=== PATIENT | male | born 1955 | race Caucasian/White ===

== ENCOUNTER → 2016-09-24 | Outpatient (CLI) | payer BC ==
--- NOTE | 2016-09-24 14:41 | DI ---
Indication: ITS.REASON: I25.10; R01.1; I35.0 Frequency of micturition PROCEDURE: US CAROTID DOPP COMPLETE: TECHNIQUE: Grayscale, color and duplex Doppler imaging was performed of the carotid systems bilaterally. Velocities in cm/sec - validated velocity measurements with angiographic measurements, velocity criteria are extrapolated from diameter data as defined by the Society of Radiologists in Ultrasound Consensus Conference Radiology 2003; 229;340-346. RIGHT: PSV ICA 183 EDV ICA 55 PSV CCA 93 EDV CCA 19 SVR 2.0 PSV ECA 147 ICA Diameter reduction 60%-80% (>2.0 PSV>150)% LEFT: PSV ICA 117 EDV ICA 24 PSV CCA 102 EDV CCA 22 SVR 1.1 PSV ECA 123 ICA Diameter reduction 20%-40% (1.2-1.4 [id number])% The right vertebral artery is patent with cephalic flow. The left vertebral artery is patent with cephalic flow. Heavy calcified plaque in the right common carotid and carotid bulb. Elevated velocities throughout the right ICA. Calcified and noncalcified plaque in the left carotid bulb with no focal velocity elevation. IMPRESSION: 1. 60-80% stenosis throughout the right ICA. 2. No hemodynamically significant carotid stenosis on the left. .
--- NOTE | 2016-09-25 08:27 | ECHOF ---
DATE OF PROCEDURE September 24, [address] Richard Reis This is a two-dimensional echo with spectral Doppler, color-flow and M-mode. It was obtained in a patient with murmur and aortic stenosis. Left atrial dimension is normal. Left ventricle end-diastolic dimension is normal. Left ventricle wall thickness is increased. LV systolic function is normal with ejection fraction of 70%. Right atrium is normal. Right ventricle is normal. Aortic root dimension is normal. Mitral annulus is calcified. Mitral valve leaflets are normal with mild mitral regurgitation. Aortic valve shows fibrocalcific changes with restriction on opening motion. Transaortic velocities are increased with peak velocity of 3.24 m/sec with a peak gradient of 42 and mean gradient of 27. Aortic valve area is calculated at 1.04 cm2. There is no aortic insufficiency. Tricuspid valve shows mild tricuspid regurgitation with normal estimated pulmonary artery systolic pressure of 18. Pulmonary valve shows no pulmonary insufficiency. There is no pericardial effusion. IMPRESSION 1. Normal LV systolic function with ejection fraction of 70%. 2. Mitral annulus calcification with mild mitral regurgitation. 3. Moderate aortic stenosis with a valve area of 1.04 cm2. 4. Mild tricuspid regurgitation with normal estimated pulmonary artery systolic pressure of 18. 5. Concentric left ventricular hypertrophy. MTDD
== END ==
LOC: IMA 12:34
PROVIDERS: ATTEND Family Medicine
DX: I25.10 Atherosclerotic heart disease of native coronary artery without angina pectoris (principal); R01.1 Cardiac murmur, unspecified; I35.0 Nonrheumatic aortic (valve) stenosis; I65.21 Occlusion and stenosis of right carotid artery; I08.3 Combined rheumatic disorders of mitral, aortic and tricuspid valves
CPT/HCPCS: 93306